=== PATIENT | male | born 1980 | race Caucasian/White ===

== ENCOUNTER 2022-08-29 12:25 | Emergency (ER) | payer OTHER ==
[~2022-08-29] VITALS: Ht 190.5 cm; Wt 109.0 kg
[2022-08-29 12:27] VITALS: BP 165/113
--- NOTE | 2022-08-29 12:30 | NUR ---
Pt in [facility] pt c/o suicidal thoughts, w/o a plan. Pt feels he would be better off . Pt thinks about dying, but does not think he would commit suicide. Pt has depression, r/t alchol intake. Pt is trying to stop drinking. Pt curretly drinking 16 beers a day. Pt states he was trying to cut down himself but was having auditory hallusinations of him screaming. Pt educated to POC. Pt is in agreement. Pending providers eval and treatment.
--- NOTE | 2022-08-29 12:38 | NUR ---
Met with patient in regards to alcohol use and patient wanting a detox facility to go to. I gave patient a list of different facilites and recommended him call the back of his insurance card to find out what facilities that they are contracted with. I gave patient my card to call me with any questions.
[2022-08-29] MEDS: levetiracetam 250mg tablet PO ONE ×2 (14:14→14:54)
[2022-08-29] MEDS ORDERED: LORA-269 PO (15:43)
== END 2022-08-29 15:33 | disposition home or self-care (01) ==
LOC: ER 12:26
DX: F10.239 Alcohol dependence with withdrawal, unspecified (principal); Z88.2 Allergy status to sulfonamides; Y90.9 Presence of alcohol in blood, level not specified
CPT/HCPCS: 99283